=== PATIENT | male | born 1965 | race Caucasian/White ===

== ENCOUNTER 2016-08-27 15:39 | Inpatient (IN) ==
[2016-08-27] MEDS ORDERED: DILTIAZEM 50 MG/10 ML VIAL IV STA (15:59)
--- NOTE | 2016-08-27 16:03 | Emergency Department Note ---
Arrival - Arrival Chief Complaint: Dizziness Stated Complaint: rapid heart rate. low bp ED Nursing Triage Note: Pt sent from [facility] for Dizziness x 1 month and high heart rate/low Blood pressure at the clininc. Mode of Arrival: Ambulatory Limitations: No Limitations Source: Patient Time Seen by Provider: 08/27/16 15:58 - History of Present Illness HPI Narrative: This 51-year-old white male presents with several weeks of complaints of intermittent dizziness and at times near blackout including one episode while driving. He relates on at least one occasion of these incidents that his heart rate seemed rapid. He presented to the [place] [facility] with this history and on evaluation there was found to have a very rapid heart rate and was sent here for further evaluation. Patient has no complaints of chest pain, shortness of breath, orthopnea, PND, hemoptysis, pleuritic chest pain, or endocrine disorder. He likewise denies any headache, visual changes, slurring of speech, focal deficits, nausea, or vomiting. Currently he appears in no acute medical distress. Onset (ago): week(s) (Patient presents several weeks post onset of symptoms) Allergies/Adverse Reactions: Allergies Allergy/AdvReac Type Severity Reaction Status Date / Time No Known Allergies Allergy Verified 08/27/16 15:42 Home Medications: Home Medications Medication Instructions Recorded Confirmed Type No Known Home Medications [No 08/27/16 08/27/16 History Known Home Medications] Review of System - Review of System 12 point system: reviewed and no additional remarkable complaints except as stated - Review of System Constitutional: Present: as per HPI Respiratory: Present: as per HPI Cardiovascular: Present: as per HPI Neurological: Present: as per HPI Medical,Surgical,& Family Hx - Social History Smoking Status: Current every day smoker Exam Physical Examination: GENERAL: Well developed, well nourished elderly white male in no acute distress. HEENT: Normocephalic. No trauma. Moist mucous membranes. EOMI. PERRLA. ENT NML NECK: Supple. No adenopathy. CARDIAC: Irregular. No murmurs. Heart rate 120 CHEST: Clear to auscultation. No respiratory distress. O2 sat 98% ABDOMEN: Soft. Nontender. Active bowel sounds. EXTREMITIES: No trauma. Normal ROM. No pedal edema. SKIN: No diaphoresis. No rash. NEURO: Alert. Oriented 3. Motor, sensory, vibratory intact. No focal deficits. Vital Signs: Vital Signs Temperature 99.1 F 08/27/16 15:59 Pulse Rate 93 H 08/27/16 17:00 Respiratory Rate 21 08/27/16 17:00 Blood Pressure 117/69 08/27/16 17:00 O2 Sat by Pulse Oximetry 98 08/27/16 17:00 Course - Reevaluation(s) Reevaluation #1: Discussed with patient the need for hospitalization and control of his atrial fibrillation. - Consultations Consultation #1: Discussed with the hospitalist service who will admit for further evaluation treatment Results - Labs CBC & BMP: 08/27/16 16:17 08/27/16 16:17 Labs: I reviewed the laboratory and noted the gross normalcy excepting for an elevated BMP. - Impressions EKG: Atrial fibrillation at 125 with normal QRS duration. Nonspecific ST changes. No acute injury pattern noted. - Diagnostic Findings Procedure: Chest x-ray: image reviewed by me, report reviewed by me (Chest x- ray reveals no acute disease), CT: image reviewed by me, report reviewed by me ( Head no acute injury noted) Disposition Clinical Impression: Atrial fibrillation Case discussed with: patient, patient's family Disposition: Still a Patient Instructions: Vertigo (ED) Time of Disposition: 17:17
[2016-08-27 16:23] LABS: Basophils # 0.1 10*3/uL (0.0-0.2); Basophils % 1.1 % (0.0-0.8); Eosinophils # 0.3 10*3/uL (0.0-0.87); Eosinophils % 3.8 % (0.00-10.9); Hemoglobin 13.9 GM/DL (14.0-18.0); Immature Granulocytes % 0.2 %; Immature Granulocytes Absolute 0.02 #; Lymphocytes # 2.5 10*3/uL (1.4-4.0); Lymphocytes % 30.8 % (21.2-54.2); Mean Corpuscular HGB Conc 35.6 GM/DL (32-36); Mean Corpuscular Hemoglobin 33 PG (27-34); Mean Corpuscular Volume 92.9 FL (87-102); Monocytes # 0.8 10*3/uL (0.11-0.8); Monocytes % 9.2 % (1.7-12.7); Neutrophils # 4.5 10*3/uL (1.4-7.4); Neutrophils % 54.9 % (38.7-73.9); Platelet Count 196 T/CUMM (130-400); Red Cell Distribution Width 13.4 % (9.3-17.3); White Blood Count 8.2 T/CUMM (4-12)
[2016-08-27 16:33] LABS: PT Patient Result 10.9 SECS
--- NOTE | 2016-08-27 16:37 | CT Report ---
Referring physician: Guilherme Bruce Exam: CT brain without contrast Date: 08/27/2016 Comparison: None Reason: Dizziness Technique: Axial images of the head were obtained without the use of contrast. Total DLP was 1103.60 mGy*cm. Findings: No hydrocephalus or midline shift is present. There is no evidence of an acute infarction, recent intracranial hemorrhage or abnormal mass effect. The osseous structures appear intact. The mastoid air cells are clear. Mucosal thickening/fluid in the visualized paranasal sinuses with polypoidal changes. Impression: No acute intracranial abnormality is identified. Sinusitis. The CT exam was performed using one or more of the following dose reduction techniques: Automated exposure control and adjustment of the mA and/or kV according to patient size. PROCEDURE INTERPRETED AT [facility] DEPARTMENT OF RADIOLOGY Final Report Signed by: Dr. Racheal Bullock
--- NOTE | 2016-08-27 16:49 | XRay Report ---
History: Shortness of breath Date: 08/27/2016 Study: Chest x-ray PA and lateral Comparison exam: February 26, 2016 The cardiomediastinal silhouette and pulmonary vasculature are unremarkable without change. The lungs are well-expanded to slightly hyperexpanded. There is no infiltrate to suggest pneumonia. There is no pleural effusion. Osseous structures are unchanged. Impression: The lungs are borderline to slightly hyperexpanded such as that which can be seen with COPD. No acute process or significant interval change otherwise PROCEDURE INTERPRETED AT [facility] DEPARTMENT OF RADIOLOGY Final Report Signed by: Dr. Soni Olivo
[2016-08-27] MEDS ORDERED: DILTIAZEM 50 MG/10 ML VIAL IV ONE (16:51)
[2016-08-27 16:57] LABS: Alanine Aminotransferase 24 U/L (16-61); Albumin 3.6 G/DL (3.4-5.0); Alkaline Phosphatase 72 U/L (45-117); Aspartate Amino Transferase 24 U/L (0-37); Blood Urea Nitrogen 11 MG/DL (7-18); Calcium 8.5 MG/DL (8.5-10.1); Free T4 (Free Thyroxine) 1.03 NG/DL (0.76-1.46); Glucose 75 MG/DL (74-106); Osmolality,Calculated 283.8 MOS/KG (273-304); Potassium 4.1 MMOL/L (3.5-5.1); Sodium 144 MMOL/L (136-145); Total Protein 6.3 G/DL (6.4-8.3); Troponin I Only < 0.015 NG/ML (0.00-0.045)
[2016-08-27] MEDS ORDERED: DOCUSATE SODIUM 100 MG CAPSULE PO PRN (17:36)
[2016-08-27] MEDS ORDERED: ACETAMINOPHEN 325 MG TABLET PO PRN (17:36)
[2016-08-27] MEDS ORDERED: ONDANSETRON 4 MG/2 ML VIAL IV PRN (17:36)
--- NOTE | 2016-08-27 17:50 | Hospitalist History & Physical ---
<Chang Mabry - Last Filed: 08/27/16 17:47> Assessment and Plan (1) Atrial fibrillation Status: Acute Assessment and plan: Admitted to telemetry unit. Cardiac monitoring. TSH in the a.m. Echo ordered. EKG in am. Consult sleep medicine to evaluate FARHAD as afib may be secondary to underlying condition. Pt. to be started on eliquis and diltaziem. Current Visit: Yes (2) FARHAD (obstructive sleep apnea) Status: Acute Assessment and plan: Consult Dr. Fraga to evaluate patient Current Visit: Yes (3) Hypotension Status: Acute Assessment and plan: Monitor patient blood pressure. Current Visit: Yes History of Present Illness Chief complaint: dizziness/palpitations History of present illness: Mr. Guerra is a 51 year old white male patient with a history of smoking, FARHAD , and back pain [facility] experiencing dizziness and one blackout episode while driving. The patient was evaluated at the clinic and found to have a very rapid heart rate. An EKG confirmed afib with rvr and the pt was transferred here for higher level of care. Pt. denies chest pain, shortness of breath, n/v/d or constipation. Pt. also denied any history outside of what is listed above. Pt. does report being diagnosed with FARHAD but has been noncompliant stating he "didn't want that big machine". Pt. is not in any apparent distress in ED. Patient's and daughter are present at bedside. Pt's case has been discussed with Dr. Petty and pt. is being admitted to the hospitalist service for further eval and treatment. Home Medications Medication Instructions Recorded Confirmed Type No Known Home Medications [No 08/27/16 08/27/16 History Known Home Medications] Allergies Allergy/AdvReac Type Severity Reaction Status Date / Time No Known Allergies Allergy Verified 08/27/16 15:42 Medical,Surgical,& Family Hx - Family History Family History: Reports;: Family Heart Disease - Social History Smoking Status: Current every day smoker Type of Drug Use: None Marital Status: Lives With:: Spouse Functional capacity: independent ambulation - Constitutional Constitutional: Absent: chills, fever(s) - EENT Eyes: Absent: loss of vision Ears: Absent: decreased hearing, ear discharge Nose, mouth and throat: Absent: dysphagia, headache(s) - Cardiovascular Cardiovascular: Absent: chest pain at rest, edema - Respiratory Respiratory: Present: cough - Gastrointestinal Gastrointestinal: Absent: abdominal pain, nausea, vomiting - Genitourinary Genitourinary: Absent: difficulty urinating, hematuria - Musculoskeletal Musculoskeletal: Present: back pain. Absent: muscle weakness - Neurological Neurological: Present: dizziness. Absent: confusion, numbness - Psychiatric Psychiatric: Absent: anxiety, confusion, depression - Endocrine Endocrine: Absent: fatigue - Hematologic/Lymphatic Hematologic/Lymphatic: Absent: easy bleeding, easy bruising Exam - Constitutional Vitals: Period Temp Pulse Resp BP Sys/Bean Pulse Ox Last 24 Hr 99.1 F-99.1 F 93-107 18-21 108-118/69-89 98-98 General appearance: normal weight, no acute distress - Head Head exam: Present: normal inspection, normocephalic - Eye Eye exam: Present: EOMI. Absent: periorbital swelling Pupils: Present: CARMEN. Absent: dilated - ENT ENT exam: Present: normal exam - Neck Neck exam: Present: normal inspection. Absent: thyromegaly - Respiratory Respiratory exam: Present: clear to auscultation bilaterally. Absent: wheezes - Cardiovascular Cardiovascular exam: Present: irregular rhythm. Absent: systolic murmur - GI/Abdominal GI/Abdominal exam: Present: normal bowel sounds, soft. Absent: tenderness - Extremities Exam Extremities exam: Present: normal capillary refill, full ROM. Absent: edema - Neurological Exam Neurological exam: Present: alert, oriented X3, normal gait - Psychiatric Psychiatric exam: Present: normal affect, normal mood - Skin Skin exam: Present: normal color, warm, dry Results - Labs CBC & BMP: 08/27/16 16:17 08/27/16 16:17 Lab Results: I have reviewed the past 24 hour labs <Daija Petty - Last Filed: 08/27/16 18:56> Assessment and Plan (1) Atrial fibrillation Status: Acute Assessment and plan: agree with above Current Visit: Yes (2) COPD (chronic obstructive pulmonary disease) Status: Acute Assessment and plan: chronic and stable Current Visit: Yes (3) Hypotension Status: Acute Assessment and plan: stable Current Visit: Yes (4) FARHAD (obstructive sleep apnea) Status: Acute Current Visit: Yes History of Present Illness History of present illness: Mr. Guerra is a 51 year old male seen and examined. Hx of testing positive for sleep apnea and ignoring it. Will check tsh, will need anticoagulation to avoid a stroke. Medical,Surgical,& Family Hx - Medical History Other: History of: Miscellaneous Medical Problems (no medical problems ) - Surgical History Additional Surgical History: never had surgery - Constitutional Constitutional: Absent: headache(s) - EENT Eyes: Absent: blurry vision Nose, mouth and throat: Absent: sore throat - Cardiovascular Cardiovascular: Absent: dyspnea, dyspnea on exertion - Respiratory Respiratory: Present: snoring. Absent: dyspnea, dyspnea on exertion - Gastrointestinal Gastrointestinal: Absent: constipation, diarrhea - Neurological Neurological: Absent: headache(s), syncope Exam - Constitutional Vitals: Period Temp Pulse Resp BP Sys/Bean Pulse Ox Last 24 Hr 99.1 F-99.1 F 93-107 18-21 108-118/69-89 98-100 - ENT ENT exam: Present: normal external ear exam - Neurological Exam Neurological exam: Present: CN II-XII intact, reflexes normal. Absent: motor sensory deficit Results - Labs CBC & BMP: 08/27/16 16:17 08/27/16 16:17 - EKG EKG shows: atrial fibrillation - Diagnostic Findings Procedure: Chest x-ray: report reviewed by me (nothing acute copd), CT: report reviewed by me (head nothing acute )
[2016-08-27 19:47] LABS: Apearance,Urine CLEAR (Clear); Bilirubin,Urine Negative (Negative); Blood, Urine Negative (Negative); Glucose,Urine (UA) Negative (Negative); Ketones,Urine Negative (Negative); Nitrite,Urine Negative (Negative); Protein,Urine Negative; RBC,Urine 3 /HPF (0-4); Urine Color Yellow (Yellow); Urine Specific Gravity 1.015 (1.001-1.035); Urine Urobilinogen < 2.0 EU/DL (0.2-1.0); WBC,Urine 3 /HPF (0-6)
[2016-08-27 20:04] LABS: Barbiturates Screen,Urine Negative (Negative); Benzodiazepines Screen,Urine Negative (Negative); Cannabinoid Screen,Urine Negative (Negative); Opiate Screen,Urine Negative (Negative); Phencyclidine Screen,Urine Negative (Negative)
[2016-08-27] MEDS: DILTIAZEM CD 120 MG CAPSULE PO SCH (20:38)
[2016-08-27] MEDS: APIXABAN 5 MG TABLET PO SCH (20:39)
[2016-08-28 01:30] LABS: Basophils # 0.1 10*3/uL (0.0-0.2); Basophils % 1.1 % (0.0-0.8); Eosinophils # 0.5 10*3/uL (0.0-0.87); Eosinophils % 4.9 % (0.00-10.9); Hematocrit 37.9 VOL% (42.0-52.0); Hemoglobin 13.2 GM/DL (14.0-18.0); Immature Granulocytes % 0.3 %; Immature Granulocytes Absolute 0.03 #; Lymphocytes # 3.2 10*3/uL (1.4-4.0); Lymphocytes % 35.1 % (21.2-54.2); Mean Corpuscular HGB Conc 34.8 GM/DL (32-36); Mean Corpuscular Hemoglobin 33 PG (27-34); Mean Corpuscular Volume 94.3 FL (87-102); Mean Platelet Volume 11.1 FL (9.6-12.0); Monocytes # 0.9 10*3/uL (0.11-0.8); Monocytes % 9.2 % (1.7-12.7); Neutrophils # 4.6 10*3/uL (1.4-7.4); Neutrophils % 49.4 % (38.7-73.9); Platelet Count 178 T/CUMM (130-400); Red Blood Count 4.02 MC/CUMM (3.8-5.5); Red Cell Distribution Width 13.6 % (9.3-17.3); White Blood Count 9.2 T/CUMM (4-12)
[2016-08-28 01:44] LABS: INR 1.1; PT Patient Result 11.4 SECS
[2016-08-28 01:57] LABS: Calcium 8.2 MG/DL (8.5-10.1); Magnesium 2.1 MG/DL (1.8-2.4); Osmolality,Calculated 290.7 MOS/KG (273-304); Risk Ratio 2.36; Thyroid Stimulating Hormone 2.96 uIU/ml (0.358-3.74)
--- NOTE | 2016-08-28 05:57 | EKG Report ---
Please refer to the EKG image. Final interpretation is pending.
--- NOTE | 2016-08-28 08:09 | EKG Report ---
Stationary ECG Study [facility] Test Date: 08/28/2016 8:08:02 AM Pat Name: MANOLO NOVAK Department: Room: 284 Gender: M Publishing Director: NAYANA : 1965 Requested by: Chang Mabry Order Number: [id number] Reading MD: JEANNIE CHURCH Intervals [place] Rate: 90 P: 999 AK: 0 QRS: 73 QRSD: 106 T: 41 QT: 353 QTc: 401 Interpretive Statements ATRIAL FIBRILLATION Electronically Signed On 08-30-16 15:43:31 CDT by JEANNIE CHURCH [email or web address]
[2016-08-28] MEDS: PANTOPRAZOLE 40 MG TABLET PO SCH (08:33)
[2016-08-28] MEDS: DILTIAZEM CD 120 MG CAPSULE PO SCH ×2 (08:33→20:49)
[2016-08-28] MEDS: APIXABAN 5 MG TABLET PO SCH ×2 (08:33→20:49)
--- NOTE | 2016-08-28 12:27 | Sleep Medicine Consult ---
Assessment and Plan (1) FARHAD (obstructive sleep apnea) Status: Acute Assessment and plan: This patient has a history of severe obstructive sleep apnea and needs to be treated. He will require reevaluation by insurance standards. It has been over 5 years. We will get this set up at the next available date. I explained the importance of getting sleep apnea treated in helping to control atrial fib and to decrease complications of possible stroke. He is amenable to intervention. Current Visit: Yes (2) Atrial fibrillation Status: Acute Assessment and plan: The prevalence for obstructive sleep apnea patients with atrial fib ranges from 30-80%. Treating the underlying sleep sleep apnea can often reduce recurrence by as much as 50%. Current Visit: Yes History of Present Illness Chief complaint: Obstructive sleep apnea History of present illness: Mr. Guerra is a 51 year old male admitted with atrial fibrillation with rapid ventricular response. He actually had been seen in the emergency room in 2011 after presenting with possible angioedema. There was concern noted after that evaluation and he was set up for outpatient sleep study. This was read by Dr. Jarquin in December 2011 and he was found to have obstructive sleep apnea, having an AHI of 38.7, consistent with severe sleep apnea. He was brought back for CPAP titration and had good results with 11 cm of CPAP. He apparently never received CPAP by his history and apparently did not desire treatment. He has continued to have issues with snoring and some daytime fatigue and sleepiness though he minimizes his symptoms. He is more concerned about his recent issues with atrial fibrillation and rapid ventricular response. He states that he became syncopal with these episodes. I did explain to him the relationship between sleep apnea and atrial fibrillation and he is willing to be treated. Home Medications Medication Instructions Recorded Confirmed Type No Known Home Medications [No 08/27/16 08/27/16 History Known Home Medications] Allergies Allergy/AdvReac Type Severity Reaction Status Date / Time No Known Allergies Allergy Verified 08/27/16 15:42 Review of systems: Otherwise unremarkable from a sleep standpoint. Exam (Pulmonay) H&P - Constitutional Vitals: Period Temp Pulse Resp BP Sys/Bean Pulse Ox Last 24 Hr 97.4 F-99.1 F 84-138 16-21 105-127/64-89 98-100 Exam: He is alert and oriented and in no acute distress. Pupils equal round reactive to light and accommodation. Extraocular movements intact. Oropharynx with a class III Mallampati exam. Neck supple without adenopathy or thyromegaly. No supraclavicular adenopathy is noted. Chest with symmetrical breath sounds without focal wheeze, rhonchi, or rales. Cardiac exam reveals a regular rhythm without murmur or gallop. Abdomen soft nontender without palpable hepatosplenomegaly or mass. Extremities are without clubbing, cyanosis, or edema. Neurologically, he is grossly intact. He moves all extremities with good strength. Medical,Surgical,& Family Hx - Medical History Respiratory: History of: Obstructive Sleep Apnea (Severe obstructive sleep apnea diagnosed in 2011 with an AHI of 38) Other: History of: Miscellaneous Medical Problems (no medical problems ) - Family History Family History: Reports;: Family Heart Disease - Social History Smoking Status: Current every day smoker Type of Drug Use: None Results - Labs CBC & BMP: 08/28/16 01:22 08/28/16 01:22 Lab Results: I have reviewed the past 24 hour labs Specialty Discharge - Follow Up or Referrals
[2016-08-28] MEDS ORDERED: DIGOXIN 0.5 MG/2 ML AMP IV ONE (13:49)
--- NOTE | 2016-08-28 13:55 | Hospitalist Progress Note ---
Assessment and Plan (1) Atrial fibrillation Status: Acute Assessment and plan: dilt po bid, digoxin IV, started on eliquis, volume overload due to atrial fibrillation, gentle diuresis Current Visit: Yes (2) COPD (chronic obstructive pulmonary disease) Status: Acute Assessment and plan: chronic and stable Current Visit: Yes (3) Hypotension Status: Acute Assessment and plan: resolved Current Visit: Yes (4) FARHAD (obstructive sleep apnea) Status: Acute Assessment and plan: Dr. Fraga will set up new sleep study Current Visit: Yes Hospitalist: Subjective Interval history: Patient still in atrial fib this morning. He they had difficulty controlling his rate went as high as 201 of the nurses said and then would go back down. He was getting an echocardiogram when he came to see him this morning. Dr. Fraga has seen him and explained the benefits of treating his obstructive sleep apnea. Exam - Constitutional Vitals: Period Temp Pulse Resp BP Sys/Bean Pulse Ox Last 24 Hr 97.4 F-99.1 F 84-138 16-21 105-127/64-89 98-100 Exam: Heart Rate-[IRR] Lungs-[CTAB] GI-[+bs soft, NT] Ext-[no edema] Neuro [Motor 5/5], [alert and oriented times 3] psych [normal mood and affect] General [no acute distress] Results - Labs CBC & BMP: 08/28/16 01:22 08/28/16 01:22 Lab Results: I have reviewed the past 24 hour labs Labs: Total cholesterol is 177, BNP 398, TSH 1.6, UA negative for infection, urine drug screen negative Specialty Discharge - Follow Up or Referrals
[2016-08-28] MEDS: FUROSEMIDE 20 MG/2 ML VIAL IV SCH ×2 (14:10→16:43)
--- NOTE | 2016-08-28 21:13 | ECHO Report ---
Leeroy Guerra Exam Date: 08/28/2016 09:51 Referring Physician: Technologist: Jacinta Joseph Age: 51 Ht (in): 66 Wt (lb): 156 Gender: M Exam Location: [facility] Echo Indications: Atrial fibrillation, Hypotension, FARHAD BP: 105 / 64 HR: 84 Rhythm: Atrial fibrillation Technical Quality: IMPRESSIONS Normal left ventricular size, without hypertrophy, with mild global hypokinesis. Estimated left ventricular ejection fraction 45%. Mild biatrial enlargement. Aortic valve sclerosis, without stenosis or insufficiency. MEASUREMENTS (Male / Female) Normal Values 2D ECHO LV Diastolic Diameter PLAX 5.1 cm 4.2 - 5.9 / 3.9 - 5.3 cm LV Systolic Diameter PLAX 3.9 cm LV Fractional Shortening PLAX 24.8 % IVS Diastolic Thickness 0.7 cm 0.6 - 1.0 / 0.6 - 0.9 cm LVPW Diastolic Thickness 1.1 cm 0.6 - 1.0 / 0.6 - 0.9 cm RV Internal Dim ED PLAX 3.1 cm Aortic Root Diameter 3.0 cm LA Systolic Diameter LX 3.3 cm 3.0 - 4.0 / 2.7 - 3.8 cm DOPPLER TR Peak Velocity 225.0 cm/s TR Peak Gradient 20.3 mmHg FINDINGS Left Ventricle Normal left ventricular size, without hypertrophy, with mild global hypokinesis. Estimated left ventricular ejection fraction 45%. Insufficient data to estimate diastolic function. Right Ventricle The right ventricle is normal in size and function. Right Atrium The right atrium is mildly dilated. Left Atrium The left atrium is mildly dilated. Mitral Valve Morphologically normal mitral valve without significant stenosis or prolapse. There is trace mitral regurgitation. Aortic Valve Aortic valve sclerosis without stenosis or regurgitation. Tricuspid Valve Morphologically normal tricuspid valve. Mild tricuspid valve regurgitation. Tricuspid regurgitation velocities suggest a PAP of 30 mmHg. Pulmonic Valve Morphologically normal pulmonic valve. Trace pulmonary valve regurgitation. Pericardium Normal pericardium without effusion. Aorta Normal ascending aorta dimension. Angel Nicholson (Electronically Signed) Final Date: 28 Aug 2016 21:11
[2016-08-29 04:57] LABS: Basophils # 0.1 10*3/uL (0.0-0.2); Basophils % 1.1 % (0.0-0.8); Eosinophils # 0.5 10*3/uL (0.0-0.87); Eosinophils % 6.3 % (0.00-10.9); Hematocrit 39.1 VOL% (42.0-52.0); Hemoglobin 13.6 GM/DL (14.0-18.0); Immature Granulocytes % 0.4 %; Immature Granulocytes Absolute 0.03 #; Lymphocytes # 2.7 10*3/uL (1.4-4.0); Lymphocytes % 33.6 % (21.2-54.2); Mean Corpuscular HGB Conc 34.8 GM/DL (32-36); Mean Corpuscular Hemoglobin 33 PG (27-34); Mean Corpuscular Volume 93.5 FL (87-102); Mean Platelet Volume 11.6 FL (9.6-12.0); Monocytes # 0.8 10*3/uL (0.11-0.8); Monocytes % 10.3 % (1.7-12.7); Neutrophils # 3.9 10*3/uL (1.4-7.4); Neutrophils % 48.3 % (38.7-73.9); Platelet Count 175 T/CUMM (130-400); Red Blood Count 4.18 MC/CUMM (3.8-5.5); Red Cell Distribution Width 13.9 % (9.3-17.3); White Blood Count 8.1 T/CUMM (4-12)
[2016-08-29 05:31] LABS: Calcium 8.6 MG/DL (8.5-10.1); Osmolality,Calculated 283.1 MOS/KG (273-304)
[2016-08-29] MEDS: FUROSEMIDE 20 MG/2 ML VIAL IV SCH (08:34)
[2016-08-29] MEDS: DILTIAZEM CD 120 MG CAPSULE PO SCH (08:35)
[2016-08-29] MEDS: APIXABAN 5 MG TABLET PO SCH (08:35)
[2016-08-29] MEDS: PANTOPRAZOLE 40 MG TABLET PO SCH (08:36)
[2016-08-29] MEDS ORDERED: POTASSIUM CHLORIDE 20 MEQ TABLET PO SCH (09:00)
[2016-08-29] MEDS ORDERED: DIGOXIN 0.5 MG/2 ML AMP IV SCH (09:00)
[2016-08-29] MEDS ORDERED: DILTIAZEM 60 MG TABLET PO SCH (10:42)
--- NOTE | 2016-08-29 10:47 | Discharge Summary ---
Hospital Course - Hospital Course Hospital Course: 51-year-old male who comes in with feeling dizzy and lightheaded. He went to see his primary care doctor and was noted to be in A. fib with rapid ventricular response. Patient was admitted to the emergency room and [facility]. Patient was started on diltiazem and dig IV but has chronically normal blood pressure and could not tolerate any more medications. He remains in atrial fib but is now rate controlled. I have started him on Eliquis and he is tolerating that well. Patient has obstructive sleep apnea and has for years and has not had it treated. Dr. Fraga has come to see him and recommended further workup of his obstructive sleep apnea. I have informed the patient until that is treated patient will remain in atrial fib. Patient's TSH is normal. BNP was mildly elevated. Cholesterol is 177, LDL 98, triglycerides 85. Urine drug screen is negative. Echocardiogram showed an EF of 45% with PAP of 30. We will send him to see Dr. Nicholson in approximately 2 weeks. Patient will be discharged home today. - Time spent with patient Time with patient DS: Greater than 30 minutes (45 min) Diagnosis - Discharge Diagnosis (1) Atrial fibrillation Status: Acute (2) COPD (chronic obstructive pulmonary disease) Status: Acute (3) Hypotension Status: Acute (4) FARHAD (obstructive sleep apnea) Status: Acute Specialty Discharge - Follow Up or Referrals Follow up with: Katie Fraga MD [Physician] - 09/17/16 7:15 pm Discharge Plan - Discharge Data Disposition: Disch To Home/Self Care Condition at Discharge: Stable Discharge Diet: heart healthy Activity: resume usual activities as tolerated Hygiene: no restrictions Weight Bearing at Discharge: full weight bearing Driving: no restrictions - Discharge Medications No Action No Known Home Medications [No Known Home Medications] - Follow Up or Referral Follow Up: Katie Fraga MD [Physician] - 09/17/16 7:15 pm Angel Nicholson MD [Physician] - 1 Week - Forms/Instructions Instructions: Vertigo (ED) Exam - Constitutional Vitals: Period Temp Pulse Resp BP Sys/Bean Pulse Ox Last 24 Hr 97.4 F-98.8 F 67-101 16-20 91-127/55-70 93-100 General appearance: normal weight, no acute distress - Respiratory Respiratory exam: Present: clear to auscultation bilaterally. Absent: rhonchi, wheezes - Cardiovascular Cardiovascular exam: Present: irregular rhythm. Absent: systolic murmur - GI/Abdominal GI/Abdominal exam: Present: normal bowel sounds, soft. Absent: tenderness - Extremities Exam Extremities exam: Present: normal inspection, normal capillary refill - Neurological Exam Neurological exam: Present: alert, oriented X3, CN II-XII intact, reflexes normal. Absent: motor sensory deficit - Psychiatric Psychiatric exam: Present: normal affect, normal mood - Skin Skin exam: Present: normal color, warm Discharge Results Labs on day of discharge: Labs from last 24 hours 08/29/16 08/29/16 04:25 04:25 WBC 8.1 RBC 4.18 Hgb 13.6 L Hct 39.1 L MCV 93.5 MCH 33 MCHC 34.8 RDW 13.9 Plt Count 175 MPV 11.6 Neut % (Auto) 48.3 Lymph % (Auto) 33.6 [place] % (Auto) 10.3 Eos % (Auto) 6.3 Baso % (Auto) 1.1 H Neut # (Auto) 3.9 Lymph # (Auto) 2.7 [place] # (Auto) 0.8 Eos # (Auto) 0.5 Baso # (Auto) 0.1 Immature Gran % 0.4 Nucleated RBC % 0.0 Immature Gran # 0.03 Nucleated RBCs # 0.00 Sodium 142 Potassium 4.0 Chloride 109 H Carbon Dioxide 24 Anion Gap 13.0 BUN 15 Creatinine 1.10 GFR Calculation 79 BUN/Creatinine Ratio 13.00 Glucose 96 Calculated Osmolality 283.1 Calcium 8.6 DS: Provider Date of admission: 08/27/16 17:18 Primary care physician: . No PCP Attending physician on admission: Daija Petty MD Consults: 08/27/16 17:57 Consult to Sleep Center [CONS] Routine Reason for Sleep Center: Sleep Center Physician Consult Comment: FARHAD and afib Discharging clinician: Daija Petty MD
[2016-08-29 12:40] VITALS: BP 112/58
--- NOTE | 2016-09-24 09:18 | EKG Report ---
Stationary ECG Study [facility] ER Test Date: 08/27/2016 3:54:51 PM Pat Name: MANOLO NOVAK Department: Room: 284 Gender: M Executive Relations Specialist: : 1965 Requested by: Guilherme Parikh Order Number: [id number] Reading MD: JEANNIE CHURCH Intervals [place] Rate: 122 P: 999 HI: 0 QRS: 74 QRSD: 98 T: 39 QT: 301 QTc: 374 Interpretive Statements ATRIAL FIBRILLATION WITH RAPID VENTRICULAR RESPONSE Electronically Signed On 08-30-16 15:27:26 CDT by JEANNIE CHURCH [id number]
== END 2016-08-29 13:16 | disposition home or self-care (01) | DRG 310 ==
LOC: N.ED 15:39 → N.EDINP 17:18 → N.TELEN 18:32
PROVIDERS: ADMIT Internal Medicine; ATTEND Internal Medicine